=== PATIENT | male | born 1950 | race Caucasian/White ===

== ENCOUNTER → 2021-05-05 | Outpatient (CLI) | payer OTHER | LOC: CAT 09:05 | PROVIDERS: ATTEND Family Medicine | DX: Z13.6 Encounter for screening for cardiovascular disorders (principal) ==

== ENCOUNTER → 2021-05-22 | Outpatient (CLI) | payer OTHER, MEDICARE ==
[2021-05-22 14:38] LABS: CREATININE 1.3 mg/dL (0.7-1.3)
== END | disposition home or self-care (01) ==
LOC: CAT 12:30
PROVIDERS: ATTEND Family Medicine
DX: C85.28 Mediastinal (thymic) large B-cell lymphoma, lymph nodes of multiple sites (principal); R91.1 Solitary pulmonary nodule; N28.1 Cyst of kidney, acquired

== ENCOUNTER → 2021-05-24 | Outpatient (CLI) | payer OTHER, MEDICARE | LOC: SJCVC 13:31 | PROVIDERS: ATTEND Internal Medicine | DX: R94.31 Abnormal electrocardiogram [ECG] [EKG] (principal); Z13.220 Encounter for screening for lipoid disorders; R93.1 Abnormal findings on diagnostic imaging of heart and coronary circulation; I10 Essential (primary) hypertension; Z87.891 Personal history of nicotine dependence; Z72.89 Other problems related to lifestyle; Z79.84 Long term (current) use of oral hypoglycemic drugs; Z79.899 Other long term (current) drug therapy ==

== ENCOUNTER → 2021-06-02 | Outpatient (CLI) | payer OTHER, MEDICARE | LOC: SJCVCIMAG 14:19 | PROVIDERS: ATTEND Internal Medicine | DX: R93.1 Abnormal findings on diagnostic imaging of heart and coronary circulation (principal); E78.00 Pure hypercholesterolemia, unspecified; R94.31 Abnormal electrocardiogram [ECG] [EKG]; I10 Essential (primary) hypertension; E11.9 Type 2 diabetes mellitus without complications; M17.11 Unilateral primary osteoarthritis, right knee; J44.9 Chronic obstructive pulmonary disease, unspecified; R06.00 Dyspnea, unspecified; R53.83 Other fatigue; Z87.891 Personal history of nicotine dependence; Z72.89 Other problems related to lifestyle; Z79.82 Long term (current) use of aspirin; Z79.84 Long term (current) use of oral hypoglycemic drugs; Z79.899 Other long term (current) drug therapy ==